=== PATIENT | male | born 1965 | race Caucasian/White ===

== ENCOUNTER → 2018-07-05 11:46 | Outpatient (CLI) | payer OTHER, SELFPAY ==
--- NOTE | 2018-07-05 11:51 | RAD_ITS ---
STUDY: X-RAY CHEST REASON FOR EXAM: Male, 52 years old. Left lateral chest pain and cough. TECHNIQUE: PA and lateral views of the chest. COMPARISON: None. FINDINGS: Hyperinflation. Focal nondescript infiltrate is seen in the right upper lobe. Radiographic follow-up is recommended. Scattered calcified granulomas. There is no demonstrated pleural abnormality. Normal size heart. Normal mediastinum and wilfredo. Normal visualized pulmonary arteries. Normal visualized aortic arch and descending thoracic aorta. There is demineralization of the osseous structures. Normal visualized ribs, clavicles, and shoulders. There is no demonstrated abnormality of the visualized soft tissue structures of the upper abdomen. RAD/Chest PA and Lateral IMPRESSION: Focal nondescript infiltrate in the right upper lobe. Radiographic follow-up is recommended. Electronically Signed: Devon Carbone MD at 12:40 EST Tel [phone], Service support ,
== END ==
PROVIDERS: Referring Provider Internal Medicine; Visit Provider Internal Medicine
DX: R07.81 Pleurodynia (principal)
CPT/HCPCS: 71046

== ENCOUNTER → 2018-08-09 14:36 | Outpatient (CLI) | payer OTHER, SELFPAY ==
--- NOTE | 2018-08-09 14:41 | RAD_ITS ---
STUDY: X-RAY CHEST REASON FOR EXAM: Male, 52 years old. Follow-up pneumonia TECHNIQUE: PA and lateral views of the chest. COMPARISON: July 05, 2018 chest x-ray FINDINGS: Lungs are hyperinflated. There is biapical scarring. There is a calcified granuloma in the right midlung zone. There is no demonstrated pleural abnormality. Normal size heart. Normal mediastinum and wilfredo. Normal visualized pulmonary arteries. Normal visualized aortic arch and descending thoracic aorta. Normal visualized thoracic spine. Normal visualized ribs, clavicles, and shoulders. There is no demonstrated abnormality of the visualized soft tissue structures of the upper abdomen. RAD/Chest PA and Lateral IMPRESSION: Hyperinflation of the lungs suggesting chronic obstructive pulmonary disease. No evidence of acute focal infiltrate. Electronically Signed: Layla Vargas MD at 14:53 EST Tel , Service support ,
== END ==
PROVIDERS: Family Provider Nurse Practitioner; PCP Nurse Practitioner; Referring Provider Nurse Practitioner; Visit Provider Nurse Practitioner
DX: J18.9 Pneumonia, unspecified organism (principal)
CPT/HCPCS: 71046

== ENCOUNTER → 2019-05-11 16:08 | Outpatient (CLI) | payer OTHER, SELFPAY | PROVIDERS: Family Provider Nurse Practitioner; PCP Nurse Practitioner; Referring Provider Podiatrist; Visit Provider Podiatrist | DX: B07.0 Plantar wart (principal) ==

== ENCOUNTER → 2019-05-11 16:08 | Outpatient (CLI) | payer OTHER, SELFPAY ==
--- NOTE | 2019-05-11 16:08 | LES_PTH ---
PATIENT: ALFRED HEREDIA LOC: [facility] U#:[id number] AGE/SX: 59/M ROOM: RE05/11/[address]: Dr. Abigail Keys DPM : 1965 BED: DIS: SPEC #: [id number] RECD: 05/11/19 17:43 STATUS: VARSHA AARON #: [id number] DENNIS: 05/11/19 16:[address]: Abigail Keys DEPT: SURGICAL PATHOLOGY RECD BY: Thai Burns ENTERED: 05/12/19 08:12 SP TYPE: Lesion OTHR DR: Romi Corrales, CHEMICAL LAB TECHNICIAN-C Tissues: Skin of foot, NOS Procedures: Surgery Specimen Level IV HEADER OPERATION: Biopsy PRE-OP DIAGNOSIS: Soft tissue lesion left foot TISSUE SUBMITTED: Soft tissue lesion left foot MICROSCOPIC DIAGNOSIS Soft tissue lesion, left foot, biopsy: Consistent with superficial fragments of verruca vulgaris. KESHAV:brenden 05/13/19 MICROSCOPIC DESCRIPTION Slides are reviewed. GROSS DESCRIPTION Received in fixative is one container labeled with the patient's name and designated left foot plantar wart. The specimen consists of five variable sized pieces of figueroa-white skin measuring in aggregate 1 x 1.5 x 0.2 cm. The largest piece measures 1 x 0.5 x 0.2 cm in greatest dimension and the smallest piece measures 0.3 cm in greatest dimension. The largest piece is bisected. The entire specimen is submitted in one cassette. / SJ:brenden 05/12/19 TC:1 CPT: 15114
== END ==
PROVIDERS: Family Provider Nurse Practitioner; PCP Nurse Practitioner; Visit Provider Podiatrist
DX: B07.0 Plantar wart (principal)
CPT/HCPCS: 88305

== ENCOUNTER → 2019-06-15 14:41 | Outpatient (CLI) | payer OTHER, SELFPAY ==
--- NOTE | 2019-06-15 15:38 | NEURO ---
NCS and/or EMG Patient Report Ordering Doctor: Romi Corrales DATE OF SERVICE: 06/15/19 Huey Canseco is a 53-year-old male who presents for electrodiagnostic testing of the right upper limb. He reports numbness and tingling radiating from his shoulder down his arm. Next Electrodiagnostic findings: Right median motor nerve demonstrates normal distal latency, amplitude, with mildly reduced conduction velocity. Normal right ulnar motor response. Normal median ulnar F-wave. Normal sensory responses. On needle EMG, 1+ fibrillations in the right pronator teres, right triceps and right lower cervical paraspinals. Motor action potentials are of normal amplitude and duration. Next Electrodiagnostic assessment: This is an abnormal study in the right upper limb. 1. Electrodiagnostic findings demonstrate acute right-sided C7 radiculopathy. Consider correlating with cervical spine imaging to evaluate for spondylosis and possible disc herniation. 2. No electrodiagnostic evidence for peripheral neuropathy.
== END ==
PROVIDERS: Family Provider Nurse Practitioner; PCP Nurse Practitioner; Referring Provider Nurse Practitioner; Visit Provider Nurse Practitioner
DX: R20.2 Paresthesia of skin (principal)
CPT/HCPCS: 95886; 95910

== ENCOUNTER → 2019-06-21 12:24 | Outpatient (CLI) | payer OTHER, SELFPAY ==
--- NOTE | 2019-06-21 12:31 | RAD_ITS ---
STUDY: X-RAY - CERVICAL SPINE REASON FOR EXAM: Male, 53 years old. Pain TECHNIQUE: 5 view(s) of the cervical spine were obtained. COMPARISON: None FINDINGS: Normal anterior atlantoaxial articulation. Normal odontoid process. Normal cervical lordosis. No evidence for acute fracture or subluxation.. There is narrowing of C5-6 and C6-7 with endplate spurring in association with bilateral neuroforaminal stenosis due to bony hypertrophy... The soft tissue structures are unremarkable. RAD/Cerv Spine 4 or 5 Views IMPRESSION: Spondylosis most severe at C5-6 and C6-7. CT or MRI would be helpful for further evaluation if clinically warranted Electronically Signed: Quinten Talley MD at 22:56 EST , Service support ,
== END ==
PROVIDERS: Family Provider Nurse Practitioner; PCP Nurse Practitioner; Referring Provider Nurse Practitioner; Visit Provider Nurse Practitioner
DX: M54.12 Radiculopathy, cervical region (principal)
CPT/HCPCS: 72050

== ENCOUNTER → 2020-05-28 08:02 | Outpatient (CLI) | payer OTHER, SELFPAY ==
[2020-05-18 14:55] VITALS: BMI 23.7
--- NOTE | 2020-05-28 08:03 | CT_ITS ---
STUDY: CT ABDOMEN AND PELVIS WITH CONTRAST REASON FOR EXAM: Male, 54 years old. RIGHT SIDE VENTRAL HERNIA and amp; UMBILICAL HERNIA RADIATION DOSAGE (If Supplied By Facility): CTDIvol = ( 12.06 ) mGy, DLP = ( 516.53 ) mGycm TECHNIQUE: Transaxial images were obtained from the dome of the diaphragm to the symphysis pubis with oral contrast. Oral and amp; IV Readi-CAT and amp; 100mL Isovue-300 was administered. Sagittal and coronal images were reconstructed. Individualized dose optimization techniques were used for this CT. COMPARISON: None. FINDINGS: The visualized lung bases are unremarkable. The visualized portions of the heart are within normal limits. Normal liver. Normal gallbladder and extrahepatic biliary system. There are multiple benign calcified granulomata of the spleen. Normal pancreas. Normal bilateral adrenal glands. Normal right kidney. Normal left kidney. Normal visualized stomach. Normal small intestine. Normal colon. The appendix is visualized and appears normal. Normal abdominal aorta. Normal inferior vena cava. Normal retroperitoneum. Normal urinary bladder. There is a small umbilical hernia containing fat. Small right inguinal hernia containing fat. There are degenerative changes of the visualized lumbar spine. Grade 1 anterior listhesis of L5 on S1 with spondylolysis of the pars interarticularis at the L5 vertebrae. CT/Abdomen/Pelvis WITH Contrast IMPRESSION: Small umbilical hernia containing fat as well as a small right inguinal hernia containing fat. Electronically Signed: Devon Carbone, at 14:26 EDT , Service support ,
== END ==
PROVIDERS: PCP Nurse Practitioner; Referring Provider Surgery; Visit Provider Surgery
DX: K43.9 Ventral hernia without obstruction or gangrene (principal)
CPT/HCPCS: 74177; Q9967

== ENCOUNTER 2020-07-23 09:27 | Day surgery (SDC) | payer OTHER, SELFPAY ==
[2020-07-17 10:50] VITALS: BMI 23.6
[2020-07-17 11:39] LABS: Hematocrit 45.7 % (40-54); Hemoglobin 15.7 g/dL (13.0-16.5); Mean Corp Hgb Conc 34.4 g/dL (32-36); Mean Corpuscular Volume 98.9 fL (80-94); Mean Platelet Vol. 11.4 fl (6.2-12.0); Platelet Count 219 K/mm3 (150-450); RBC Distribution Width CV 12.8 % (11.6-14.6); RBC Distribution Width SD 46.9 fl (35.1-43.9); Red Blood Count 4.62 M/mm3 (4.6-6.2); White Blood Count 9.1 K/mm3 (4.4-11.0)
--- NOTE | 2020-07-17 12:21 | EKG12_ITS ---
Test Reason : PRE OP Blood Pressure : / mmHG Vent. Rate : 054 BPM Atrial Rate : 054 BPM P-R Int : 154 ms QRS Dur : 102 ms QT Int : 446 ms P-R-T Axes : 079 062 076 degrees QTc Int : 422 ms Sinus bradycardia Otherwise normal ECG Confirmed by TRUONG GTZ, GLADYS ([id number]), sound editor AJNETTE GREENWOOD ([id number]) on 07/18/2020 1:09:11 PM Referred By: ARLEEN Confirmed By:GLADYS GUERIN MD
[2020-07-23] VITALS (7 sets, daily range): BP systolic 133–166; BP diastolic 72–84; PULSE 52–61; RESP 16–166; TEMP 36.2–36.8; O2SAT 97–100; BMI 23.9
--- NOTE | 2020-07-23 07:49 | HP_ITS ---
Intake Vital Signs 07/17/20 Height 5 ft 8 in 07/17/20 Weight: 155 lb 07/17/20 BP 153/82 H 07/17/20 Blood Pressure Location Rt brachial 07/17/20 Position Sitting 07/17/20 Respiration 18 07/17/20 Pulse 50 L 07/17/20 Pulse Source Monitor 07/17/20 Temp 97.3 F L 07/17/20 Temp Source Temporal 07/17/20 Pulse Oximetry (%) 98 07/17/20 Oxygen Delivery Method room air Intake Visit Reasons: update h&p robot lap [facility] Chief Complaint: Update history and physical for RI repair 07/23 Cell Feed Department Supervisor Required: No Is patient in pain?: No Allergies No Known Allergies Allergy (Verified 07/17/20 10:52) Medications bictegravir 50 mg-emtricitabine 200 mg-tenofovir alafenam 25 mg tablet 1 tab PO QHS 05/18/20 [History Confirmed 07/17/20] duloxetine 60 mg capsule,delayed release 60 mg PO QHS 05/18/20 [History Confirmed 07/17/20] losartan 25 mg tablet 25 mg PO DAILY 05/18/20 [History Confirmed 07/17/20] valacyclovir 500 mg tablet 500 mg PO QHS 05/18/20 [History Confirmed 07/17/20] [facility] Medical History Abdominal pain (Acute) Depression (Acute) Pneumothorax (Acute) Right groin pain (Acute) Right inguinal hernia (Acute) Umbilical hernia (Acute) COPD (chronic obstructive pulmonary disease) (Chronic) Hypertension (Chronic) Family History Father Heart disease Hypertension Mother Seizures Social History (Updated 07/17/20 @ 15:07 by Awa MASTERS PAPatrickC) Smoking Status: Current every day smoker alcohol intake: current substance use type: does not use HPI HPI Surgical H&P: Yes HPI: ALFRED HEREDIA, is a 54 M who presents to the office today for an update history and physical. Patient denies recent hospitalizations or illnesses. He denies cardiac history. He notes history of COPD. He is a 40 year smoker. He denies previous complications or side effects from anesthesia. He denies pain at the hernia site currently. Patient's previous history per Dr. Herman: ALFRED HEREDIA, is a 54 M who presents to the office today for Follow-up from a CAT scan of his abdomen and pelvis with IV and p.o. contrast. This showed a large right inguinal hernia. He also had a small ventral hernia that identified and that looked like there was actually some weakness on the left side as well. Patient has noticed this for better than a year. Actually had an ultrasound of it before where they said nothing was wrong. He now has noticed a bulge come out noticed the pain has increased. He has had no change in his bowel or bladder habits. He also notices a bulge in his bellybutton area and above his bellybutton area he does not have any pain with this unless there is palpation. And it really has not changed much and is actually been there for many years.He has had no imaging of this defect. ROS General General: Yes fatigue; no weight change, appetite, colon cancer, breast cancer or weakness HEENT HEENT: No difficulty swallowing, eye injury, eye surgery, swollen glands or hoarseness Endo Endocrine: No thyroid disease, diabetes mellitus, thyroid cancer, Hair loss, heat intolerance or cold intolerance Skin Skin: No rash or changing moles Breast Breast: No left breast lump, right breast lump, nipple discharge, breast pain, abnormal mammogram, abnormal US or breast enlargement Musc Musculoskeletal: No back problems, arthritis, rheumatoid arthritis, gout or joint pain Cardio Cardiovascular: Yes high blood pressure; no murmur, pacemaker, heart disease, atrial fibrillation, heart attack, heart stent, palpitations, shortness of breat with exertion or chest pain Psych Psychiatric: Yes depression; no anxiety or hearing voices Resp Respiratory: No shortness of breath, No sleep apnea, No cough, Yes COPD, No asthma, No emphysema, No wheezing Gastro Gastrointestinal: Yes abdominal pain, No nausea or vomiting, No diarrhea, No constipation, No blood in stool, No acid reflux, No hemorrhoids, No ulcers, No gallbladder problem, No black,tarry stools Lalo Hematologic: No blood thinners, No blood disorders, No bleeding, No anemia, No blood clots Neuro Neurologic: No system reviewed and no additional complaints, except as docu, No as per HPI, No abnormal walking, No abnormal hearing, No abnormal movements, No abnormal speech, No behavioral changes, No burning sensations, No confusion, No seizure-like activity, No unsteadiness, No dizziness, No localized weakness, No frequent falls, No headache(s), No lack of coordination, No loss of vision, No memory loss, No numbness, No other visual disturbances, No radiating pain, No restless legs, No sensory deficit, No fainting, No tingling, No tremor(s), No weakness, No other Exam Const General: cooperative, healthy appearing, comfortable, no acute distress HENMT Head: normal to inspection Eyes General: appearance normal, both eyes and all related structures Neck Neck: normal visual inspection Neck mass: No Chest Breast Palpation: No nipple discharge Resp Effort & Inspection: normal respiratory effort Auscultation: clear to auscultation bilaterally Cardio Rate: regular rate Rhythm: regular rhythm Heart Sounds: no murmurs GI Inspection: normal to inspection Palpation: hernia (large right inguinal hernia. Slight laxity in the left groin) Skin General: no rashes or lesions noted Neuro General: no focal motor deficits Extrem General: normal to inspection Psych Appearance: grossly normal Affect: normal affect Assessment & Plan Problems 1. Right inguinal hernia K40.90 2. Discomfort of left groin R10.32 3. Ventral incisional hernia without obstruction or gangrene K43.[address] Herman will plan to perform a robotic assisted laparoscopic right inguinal hernia with possible left inguinal hernia repair with mesh and ventral hernia repair with possible mesh. Procedure details, risks and benefits have been reviewed. Patient verbally understands and agrees with the plan. Post-operative instructions and bowel regimen was discussed with the patient. Coding Level of Care Code No Charge Diagnoses Right inguinal hernia K40.90 Discomfort of left groin R10.32 Ventral incisional hernia without obstruction or gangrene K43.2 Comment Update H&P I have re-examined the patient. There are no clinical changes since date of exam.
[2020-07-23] MEDS: Lactated Ringers 1,000 ML 100 ML IV ×2 (10:21→15:11)
[2020-07-23] MEDS: Cefazolin 2 GM in 0.9% Normal Saline 100 ML IV (11:46)
--- NOTE | 2020-07-23 11:49 | PCM.DC.HER ---
Discharge Diet: Light diet - advance as tolerated Discharge Activity: Return to Normal Activity, May Drive - when you are no longer taking narcotic pain medications., May Shower - with the bandage in place 1-2 days after surgery. Lifting Restrictions: 20 pounds for 8 weeks. Additional Activity Instructions:: Climbing stairs is fine, walking is encouraged. Sitting in bed may be uncomfortable. Sitting up using your lateral muscles (sitting up sideways) is usually more comfortable. Do not drive, work heavy equipment of sign legal documents for 24 hours. If your hernia repair was an ingunial repair, you may have scrotal swelling, an ice pack and/or athletic support can provide more comfort. Pain medications may cause nausea, you should typically eat light foods as you take your pain medications. Pain medications may also cause constipation. If you have difficulty with this, discuss with your doctor. Call your doctor if your incision/area has: Continuous Slow Oozing, Sudden Increased Bleeding, Increased Pain/ Swelling, Increased Redness, Foul Smelling Discharge Call your doctor if you observe: Fever of 101 or Higher Suture Line Care: Avoid Pulling/Pushing, Avoid Pinching/Bending Additional Dressing/Incision Instructions:: Leave the operative bandage on for 2-3 days. When you remove the bandage, leave the steri-strips on place until your follow up appointment or they fall off. Allergies/Adverse Reactions: Allergies No Known Allergies Allergy (Verified 07/23/20 09:49) Medications to take at Discharge bictegravir 50 mg-emtricitabine 200 mg-tenofovir alafenam 25 mg tablet 1 tab PO QHS 05/18/20 duloxetine 60 mg capsule,delayed release 60 mg PO QHS 05/18/20 losartan 25 mg tablet 25 mg PO DAILY 05/18/20 valacyclovir 500 mg tablet 500 mg PO QHS 05/18/20 Oxycodone HCl/Acetaminophen [Percocet 5/325] 1 - 2 tablet PO Q4H PRN PRN 6 Days #30 tablet 07/23/20 The following prescriptions were given: Oxycodone HCl/Acetaminophen [Percocet 5/325] 1 - 2 tablet PO Q4H PRN PRN 6 Days #30 tablet PRN Reason: Pain Transmission Status: Received by [facility]/pharmacy #[id number] Primary Care Physician: Romi Corrales PHOTOCOMPOSITION KEYBOARD OPERATOR, PHOTOCOMPOSITION KEYBOARD OPERATOR-C [Primary Care Provider] - Test Results: Test results from this visit will be discussed in further detail at your follow-up appointment, if applicable. Please Follow Up With: Stephon Herman MD - [phone] When: Plan to have a follow up appointment in 7 days. Call to schedule.
--- NOTE | 2020-07-23 11:50 | OP.PCM_ITS ---
Problem List (1) Bilateral inguinal hernia Status: Acute Qualifiers: Obstruction and gangrene presence: without obstruction or gangrene Recurrence: non-recurrent Qualified Code(s): K40.20 - Bilateral inguinal hernia, without obstruction or gangrene, not specified as recurrent Report of Operation Date of Procedure: 07/23/20 Pre-Operative Diagnosis: Right inguinal hernia Post-Operative Diagnosis: 1. Bilateral inguinal hernias. 2. Ventral hernia Surgery/Procedure Performed:: 1. Robotically assisted laparoscopic bilateral in guinal hernia repairs. 2. Ventral hernia repair Type of Anesthesia:: General Anesthesiologist: Fili Reynolds Estimated Blood Loss (mL): 25 cc Description of Procedure: Patient was brought into the operating room. Placed in the supine position. Under excellent general trach intubation Robles catheter was placed the abdomen was sterilely prepped and draped in usual fashion. Local was injected above the umbilicus I dissected down to where he had a small ventral hernia I grabbed the fascia place a varies needle inside the abdomen inflated the abdomen to 15 torr. I placed the 10/12 trocar directly through the hole. I inflated the balloon I then placed 2 #8 trochars flanking the 1012 trocar. These were done under direct visualization without injury to underlying structures. The robot was brought in and docked appropriately. I started on the right side. I scored the peritoneum dissected down to Orlando's ligament I brought a direct inguinal hernia back down through the defect then went further laterally I took the peritoneum off the cord and vessel structures. I cleaned off the pubic tubercle and Orlando's ligament. I then went to the left side similar fashion scored the peritoneum dissected down to Orlando's ligament dissected laterally. The patient had an indirect inguinal hernia here I dissected the cord and vessel structures free and then dissected further laterally. I placed 2 pieces of mesh into the wound this was the self sealing Velcro mesh cover both defects quite nicely the mesh laid completely flat I then reperitonealized the area with 3 OV lock. I had a small rent which I was able to control with [id number] stitch of 3-0 Vicryl. I removed all the sutures I had excellent hemostasis. Trochars were removed. The 1012 trocar I dissected this free got good fascial edges I brought it together with 3 interrupted sutures of #1 Nurolon. Local was injected skin incisions were closed with 4-0 Monocryl. Steri-Strips were applied sterile dressings were applied and the patient tolerated the procedure well. - Admit VTE Documentation VTE Present on Admission: No VTE Mechan Device Prophylaxis: SCD's VTE Pharm Prophylaxis ordered?: No Reason prophylaxis not ordered:: Treatment Not Indicated [id number]: [id number] Lap ing hernia repair init - [id number]
[2020-07-23] MEDS: Bupivacaine Mpf 0.5% 30 ML VIAL (12:01)
[2020-07-23] MEDS: Acetaminophen 325 MG Tablet PO (15:07)
[2020-07-23] MEDS: oxyCODONE 5 MG Tablet PO (15:08)
== END 2020-07-23 15:50 | disposition home or self-care (01) ==
LOC: SDC 09:29 → AC 09:29
PROVIDERS: Anesthesiology; PCP Nurse Practitioner; Referring Provider Surgery; Visit Provider Surgery
PROC: (CPT 49560; principal; 2020-07-23 11:10)
DX: K40.20 Bilateral inguinal hernia, without obstruction or gangrene, not specified as recurrent (principal); J44.9 Chronic obstructive pulmonary disease, unspecified; K43.2 Incisional hernia without obstruction or gangrene; F17.200 Nicotine dependence, unspecified, uncomplicated; I10 Essential (primary) hypertension
CPT/HCPCS: 00752; 49560; 49650; 36415; 85027; 87426; 93005; C9803; J7120; J2405; J3490

== ENCOUNTER 2021-08-27 13:11 | Outpatient (CLI) | payer OTHER, SELFPAY ==
[2021-08-27 13:22] VITALS: BP 142/83; PULSE 57; RESP 16; TEMP 36.8; O2SAT 95; BMI 24.3
[2021-08-27] MEDS: 0.9% Saline Lock 10 ML Syringe IV (13:28)
[2021-08-27 13:59] VITALS: BP 134/76; PULSE 53; RESP 16; TEMP 36.9; O2SAT 95
[2021-08-27 14:54] VITALS: BP 127/74; PULSE 50; RESP 16; TEMP 36.8; O2SAT 98
== END 2021-08-27 23:59 | disposition home or self-care (01) ==
LOC: MS3OUT 13:12 → MS3 13:13
PROVIDERS: PCP Nurse Practitioner; Referring Provider Nurse Practitioner Adult Health; Visit Provider Nurse Practitioner Adult Health
DX: Z23 Encounter for immunization (principal); U07.1 COVID-19
CPT/HCPCS: J7050; Q0245; A4216